=== PATIENT | male | born 1990 | race Caucasian/White ===

== ENCOUNTER 2016-12-07 15:38 | Emergency (ER) | payer MEDICAID ==
[2016-12-07 18:23] VITALS: BP 121/75
== END 2016-12-07 18:23 | disposition home or self-care (01) ==
LOC: ED 15:38
DX: R07.89 Other chest pain (principal); R20.0 Anesthesia of skin; Z79.899 Other long term (current) drug therapy
CPT/HCPCS: J1885; Q0092